=== PATIENT | female | born 1955 | race Hispanic/Latino ===

== ENCOUNTER → 2025-07-29 | Day surgery (SDC) | payer MEDICARE ==
[~2025-07-29] MED LIST: CLOPIDOGREL75 MG PO; D3-5000125 MCG; DULOXETINE HCL30 MG PO; FOLIC ACID0.4 MG PO; LASIX20 MG PO; LEVETIRACETAM500 MG PO; LIDOCAINE HCL 2% LOCAL INJ 5 ML SDV VIAL INJ ONE; LINZESS145 MCG PO; LIPITOR20 MG PO; OMEPRAZOLE40 MG PO; ONDANSETRON ODT4 MG PO; PROPOFOL IV EMULSION 10 MG/ML 20 ML VIAL ONE
[2025-07-29] MEDS: SODIUM CHLORIDE 0.9% 500ML 500 ML ONE (07:39)
[2025-07-29 07:55] LABS: BASOPHILS % 1.3 % (0.0-1.0); EOSINOPHILS % 0.8 % (0.0-6.0); LYMPHOCYTES % 26.4 % (18.0-39.1); MONOCYTES % 8.1 % (4.4-11.3); NEUTROPHILS % 63.1 % (38.7-80.0); RED CELL DISTRIBUTION WIDTH 13.6 % (11.7-14.4)
[2025-07-29 08:09] LABS: INR 0.9
[2025-07-29 08:17] LABS: EST GLOMERULAR FILTRATION RATE 9.0 ML/MIN (>=60)
[2025-07-29 10:47] VITALS: TEMP 97.5
[2025-07-29 11:00] VITALS: BP 136/69; PULSE 76; RESP 16; O2SAT 99
== END | disposition home or self-care (01) ==
LOC: OR 07:05
PROVIDERS: ATTEND Internal Medicine Gastroenterology
DX: K59.01 Slow transit constipation (principal); K64.1 Second degree hemorrhoids; E11.22 Type 2 diabetes mellitus with diabetic chronic kidney disease; I12.0 Hypertensive chronic kidney disease with stage 5 chronic kidney disease or end stage renal disease; N18.6 End stage renal disease; Z99.2 Dependence on renal dialysis; E78.5 Hyperlipidemia, unspecified; G40.909 Epilepsy, unspecified, not intractable, without status epilepticus; K21.9 Gastro-esophageal reflux disease without esophagitis; Z86.73 Personal history of transient ischemic attack (TIA), and cerebral infarction without residual deficits; Z01.810 Encounter for preprocedural cardiovascular examination; Z79.899 Other long term (current) drug therapy; Z79.01 Long term (current) use of anticoagulants
CPT/HCPCS: 36415; 45378; 80048; 85025; 85610; 85730; 93005; J2003; J2704; J7040